=== PATIENT | male | born 1990 | race Hispanic/Latino ===

== ENCOUNTER 2021-12-02 16:54 | Emergency (ER) | payer SELFPAY ==
[~2021-12-02] VITALS: Ht 172.7 cm; Wt 83.0 kg
== END 2021-12-02 18:09 | disposition home or self-care (01) ==
LOC: ER 17:07
DX: S40.812D Abrasion of left upper arm, subsequent encounter (principal); S40.811D Abrasion of right upper arm, subsequent encounter; S42.402D Unspecified fracture of lower end of left humerus, subsequent encounter for fracture with routine healing; S42.401D Unspecified fracture of lower end of right humerus, subsequent encounter for fracture with routine healing; S62.102D Fracture of unspecified carpal bone, left wrist, subsequent encounter for fracture with routine healing; S62.101D Fracture of unspecified carpal bone, right wrist, subsequent encounter for fracture with routine healing
CPT/HCPCS: 99281